=== PATIENT | female | born 1965 | race Caucasian/White ===

== ENCOUNTER 2024-04-10 13:30 | Emergency (ER) | payer OTHER ==
[~2024-04-10] VITALS: Ht 162.6 cm; Wt 68.2 kg
[2024-04-10 13:34] VITALS: TEMP 98
[2024-04-10] MEDS ORDERED: METH10 PO (13:34)
[2024-04-10] MEDS: IBUPROFEN 600 MG TABLET PO ONE (14:44)
[2024-04-10 17:18] VITALS: BP 135/78; PULSE 87; RESP 18
== END 2024-04-10 17:22 | disposition home or self-care (01) ==
LOC: EMS 13:30
DX: M25.561 Pain in right knee (principal); F17.210 Nicotine dependence, cigarettes, uncomplicated; F11.90 Opioid use, unspecified, uncomplicated
CPT/HCPCS: 29505; 99283